=== PATIENT | male | born 1955 | race Caucasian/White ===

== ENCOUNTER → 2020-01-01 10:43 | Outpatient (BNVA) | payer MEDICARE, SELFPAY | PROVIDERS: Family Provider Nurse Practitioner; PCP Nurse Practitioner; Visit Provider Nurse Practitioner | DX: I10 Essential (primary) hypertension (principal); E78.2 Mixed hyperlipidemia; I73.9 Peripheral vascular disease, unspecified; F41.9 Anxiety disorder, unspecified; Z87.891 Personal history of nicotine dependence; Z79.899 Other long term (current) drug therapy | CPT/HCPCS: 80053; 80061 ==

== ENCOUNTER → 2020-01-05 11:58 | Outpatient (BNVA) | payer MEDICARE, SELFPAY | PROVIDERS: Family Provider Nurse Practitioner; PCP Nurse Practitioner; Visit Provider Nurse Practitioner | DX: R73.9 Hyperglycemia, unspecified (principal) | CPT/HCPCS: 83036 ==

== ENCOUNTER → 2020-01-06 11:30 | Outpatient (BNVA) | payer MEDICARE, SELFPAY | PROVIDERS: Family Provider Nurse Practitioner; PCP Nurse Practitioner; Visit Provider Nurse Practitioner | DX: I10 Essential (primary) hypertension (principal); E78.2 Mixed hyperlipidemia; Z79.899 Other long term (current) drug therapy | CPT/HCPCS: 81000 ==

== ENCOUNTER → 2020-07-26 13:55 | Outpatient (BNVA) | payer MEDICARE, SELFPAY | PROVIDERS: Family Provider Nurse Practitioner; PCP Nurse Practitioner; Visit Provider Nurse Practitioner | DX: I10 Essential (primary) hypertension (principal); F41.9 Anxiety disorder, unspecified; I73.9 Peripheral vascular disease, unspecified; E78.2 Mixed hyperlipidemia | CPT/HCPCS: 80053; 80061; 82607 ==

== ENCOUNTER → 2021-01-10 11:34 | Outpatient (BNVA) | payer MEDICARE, SELFPAY | PROVIDERS: Family Provider Nurse Practitioner; PCP Nurse Practitioner; Visit Provider Nurse Practitioner | DX: I10 Essential (primary) hypertension (principal); F41.9 Anxiety disorder, unspecified; I73.9 Peripheral vascular disease, unspecified; E78.2 Mixed hyperlipidemia | CPT/HCPCS: 80053; 80061; 84443; 85025 ==

== ENCOUNTER 2021-06-15 12:02 | Outpatient (CLI) | payer MEDICARE, SELFPAY ==
--- NOTE | 2021-06-15 13:30 | USCV_ITS ---
Samir Reid Age: 65 Gender: M : 1955 Exam Date: 06/15/2021 12:33 Ordering Phys: Jaclyn Aguillon Technologist: Exam Location: [facility] – [place] Indication: CCA DISEASE Risk Factors: Previous Vascular Surgery: Right Brachial BP: / Left Brachial BP: / Right Left Velocity (cm/s) Spectral Plaque Velocity (cm/s) Spectral Plaque Syst/Diast Broadening Syst/Diast Broadening 75.00/ 17.60 Prox CCA 67.80 / 8.60 72.80/ 16.50 Hetro Mid CCA 58.50 / 10.00 61.70/ 16.50 Hetro Distal CCA 37.90 / 11.30 204.25/68.15 Salvador Prox ICA / Hetro 368.25/106.30 Hetro Mid ICA / Hetro 340.15/111.00 Distal ICA / Hetro 81.60 ECA 63.50 4.89 ICA/CCA Antegrade Vertebral Antegrade 34.80/ 8.70 cm/s 54.90/ 16.30 cm/s Tri Subclavian Tri 55.70 81.50 FINDINGS Comparison: none available. Severe obstructive lesions noted in the left internal carotid artery estimated at 70-99% stenosis. Marked elevation of diastolic velocity also. Left ICA is completely occluded. Antegrade vertebral arteries. CONCLUSIONS Right ICA stenosis 70-99%. Complete occlusion left ICA. Dr. Ashley Parekh DO (Electronically Signed) Final Date: 15 June 2021 16:02 S
== END 2021-06-15 12:03 | disposition home or self-care (01) ==
LOC: RAD 12:07
PROVIDERS: PCP Nurse Practitioner; Visit Provider Nurse Practitioner
DX: H53.9 Unspecified visual disturbance (principal); I65.23 Occlusion and stenosis of bilateral carotid arteries
CPT/HCPCS: 93880

== ENCOUNTER 2021-06-20 13:22 | Outpatient (CLI) | payer MEDICARE, SELFPAY ==
[2021-06-20 14:23] LABS: Anion Gap 19.1 (5-19); Blood Urea Nitrogen 11 mg/dL (8-23); Calcium 8.9 mg/dL (8.5-10.5); Carbon Dioxide 23 mmol/L (22-29); Chloride 96 mmol/L (98-107); Glomerular Filtration Rate 74.5 mL/min (90-130); Glucose 161 mg/dL (65-115); Osmolality Calculated 279 mOsm/kg (285-295); Potassium 5.1 mmol/L (3.5-5.1); Sodium 133 mmol/L (136-145)
--- NOTE | 2021-06-20 14:30 | CT_ITS ---
WS: [id number] CTA NECK TECHNIQUE: Contrast enhanced CTA of the neck with coronal and sagittal reformatted images and maximum intensity projection (MIP) images. NASCET criteria utilized. CLINICAL INFORMATION: R94.39 - Abnormal result of other cardiovascular function... COMPARISON: Ultrasound June 15, 2021 DLP: [address] scans [address] [facility] use at least one of these dose optimization techniques: automated e xposure control; mA and/or kV adjustment per patient size (includes targeted exams where dose is matc hed to clinical indication); or iterative reconstruction. FINDINGS: RIGHT: RIGHT common carotid artery is patent. Mild circumferential narrowing in the proximal common c arotid artery. Moderate calcified atheromatous plaque RIGHT carotid bulb extending into the ICA. RIGH T ICA stenosis approximately 1 cm from the origin measures approximately 56%. RIGHT ICA is patent to the skull base. LEFT: LEFT common carotid artery is patent and arises from the innominate.. Mild stenosis LEFT mid co mmon carotid artery. Advanced atheromatous plaque LEFT carotid bulb extending into the ICA with compl ete occlusion. LEFT ICA remains occluded to the skull base. No flow in the intracranial LEFT ICA. LEFT dominant vertebral artery. Tiny hypoplastic RIGHT vertebral artery proximally with a more normal caliber distally. Severe calcified stenosis of the RIGHT vertebral artery origin. Both vertebral art eries are patent to the basilar junction. Basilar artery is patent. Normal vascularity to the HEAD WAITRESS territory bilaterally. RIGHT ICA is patent at the skull base with moderate calcified moderate spondylitic changes cervical spine. Atheromatous dis ease. Patent anterior communicating artery. Cross filling of the LEFT A1 segment. Normal vascularity to the RENUKA and MCA territories bilaterally. Normal posterior nasopharynx. Normal parapharyngeal fat. Parotid glands and submandibular glands appe ar normal. 8 mm partially calcified nodule RIGHT upper lobe anteriorly subpleural in location. CT/CT angio neck 47016 IMPRESSION: 1. Occlusion of the LEFT proximal ICA remains occluded to the skull base with dense calcified atheromatous disease. This is unchanged since the recent ultras ound. 2. Moderate calcified atheromatous plaque RIGHT carotid bulb extending into th e ICA. RIGHT ICA stenosis measures approximately 56% 3. LEFT dominant vertebral artery. Severe calcified stenosis of the RIGHT vert ebral artery origin. Both vertebral arteries are patent to the basilar junction . 4. No high-grade intracranial flow limiting stenosis. 5. Cross-filling of the LEFT MCA territory with patent anterior communicating artery.
[2021-06-20] MEDS: iohexol 350 mg/mL 100 mL Btl IV (14:37)
== END 2021-06-20 13:23 | disposition home or self-care (01) ==
PROVIDERS: PCP Nurse Practitioner; Visit Provider Nurse Practitioner
DX: I65.21 Occlusion and stenosis of right carotid artery (principal); I65.01 Occlusion and stenosis of right vertebral artery; R94.39 Abnormal result of other cardiovascular function study
CPT/HCPCS: 70498; 80048

== ENCOUNTER → 2021-06-23 13:52 | Outpatient (BNVA) | payer MEDICARE, SELFPAY | PROVIDERS: PCP Nurse Practitioner; Visit Provider Thoracic Surgery (Cardiothoracic Vascular Surgery) | DX: I65.23 Occlusion and stenosis of bilateral carotid arteries (principal); F17.200 Nicotine dependence, unspecified, uncomplicated ==

== ENCOUNTER 2021-12-20 11:59 | Outpatient (CLI) | payer MEDICARE, SELFPAY ==
--- NOTE | 2021-12-20 12:15 | USCV_ITS ---
Reid Dawson Age: 66 Gender: M : 1955 Exam Date: 12/20/2021 12:37 Ordering Phys: Rex Baldwin MD (Andy) ([email or web address]/[facility] [place]) Technologist: GWEN [place] [facility] [place]: cca stenosis Risk Factors: Previous Vascular Surgery: Right Brachial BP: / Left Brachial BP: / Right Left Velocity (cm/s) Spectral Plaque Velocity (cm/s) Spectral Plaque Syst/Diast Broadening Syst/Diast Broadening 72.80/ 19.80 Prox CCA 47.00 / 9.40 15.40/ 68.40 Mid CCA 50.40 / 7.70 72.20/ 15.50 PST Hetro Distal CCA 36.70 / 7.70 485.40/164.10 PST Hetro Prox ICA / Hetro 501.20/162.00 PST Homo Mid ICA / Hetro 509.60/183.30 Homo Distal ICA / Hetro 88.60 ECA 82.90 7.00 ICA/CCA Antegrade Vertebral Antegrade 70.10/ 20.50 cm/s 100.7/ 23.40 cm/s 0 Tri Subclavian Tri 79.50 178.1 0 FINDINGS appears worse than exam 6 months ago no flow lt ica CONCLUSIONS Occluded left ICA. Left CCA is patent Right ICA stenosis 70-99%. Severe atheromatous plaque right carotid bulb/ICA. Velocities progressed since 06/15/21. This could be further evaluated with CTA Normal antegrade Doppler flow noted in the right vertebral artery. Normal antegrade Doppler flow noted in the left vertebral artery. Eddie Ribeiro MD (Electronically Signed) Final Date: 20 December 2021 16:58 S
== END 2021-12-20 12:00 | disposition home or self-care (01) ==
LOC: RAD 11:59
PROVIDERS: PCP Nurse Practitioner; Visit Provider Thoracic Surgery (Cardiothoracic Vascular Surgery)
DX: I65.23 Occlusion and stenosis of bilateral carotid arteries (principal)
CPT/HCPCS: 93880

== ENCOUNTER → 2021-12-22 13:36 | Outpatient (BNVA) | payer MEDICARE, SELFPAY | PROVIDERS: PCP Nurse Practitioner; Visit Provider Thoracic Surgery (Cardiothoracic Vascular Surgery) | DX: I65.21 Occlusion and stenosis of right carotid artery (principal); F17.200 Nicotine dependence, unspecified, uncomplicated | CPT/HCPCS: 99213 ==

== ENCOUNTER 2022-01-31 07:46 | Outpatient (CLI) | payer MEDICARE, SELFPAY ==
--- NOTE | 2022-01-31 08:00 | CT_ITS ---
WS: [id number] CTA NECK TECHNIQUE: Contrast enhanced CTA of the neck with coronal and sagittal reformatted images and maximum intensity projection (MIP) images. NASCET criteria utilized. CLINICAL INFORMATION: carotid stenosis COMPARISON: CTA June 20, 2021 DLP: 304.[address] scans at [facility] use at least one of these dose optimization techniques: automated e xposure control; mA and/or kV adjustment per patient size (includes targeted exams where dose is matc hed to clinical indication); or iterative reconstruction. FINDINGS: RIGHT: RIGHT common carotid artery is patent. Moderate atheromatous plaque RIGHT carotid bulb extendi ng into the ICA. RIGHT ICA stenosis measures 55% unchanged from previous. ICA is patent to the skull base. Tortuous RIGHT cervical ICA. LEFT: LEFT common carotid artery is patent. Occluded LEFT proximal ICA unchanged. LEFT ICA remains oc cluded to the skull base. LEFT ECA is patent. LEFT dominant vertebral artery. Severe stenosis RIGHT vertebral artery origin with dense calcified st enosis appears unchanged. Proximal basilar artery is normal. Normal vascularity to the CARBON ACCOUNTANT territory bilaterally. Mastoid air cells are well aerated. Fluid maxillary sinuses consistent with sinusitis. Small amount o f fluid in the sphenoid sinuses. CT/CT angio neck [id number] IMPRESSION: 1. RIGHT ICA stenosis measuring 55% not significantly changed since June 20, 2021 where it measured 56%. Moderate atheromatous plaque RIGHT carotid bulb ext ending into the ICA. 2. Chronic occlusion LEFT ICA is unchanged. ICA remains occluded to the skull base. 3. LEFT dominant vertebral artery. Dense calcified stenosis of the RIGHT verte bral artery origin with severe stenosis unchanged.
[2022-01-31 08:26] LABS: Blood Urea Nitrogen 9 mg/dL (8-23); Glomerular Filtration Rate 83.9 mL/min (90-130)
[2022-01-31] MEDS: iohexol 350 mg/mL 100 mL Btl IV (08:37)
== END 2022-01-31 07:47 | disposition home or self-care (01) ==
PROVIDERS: PCP Nurse Practitioner; Visit Provider Thoracic Surgery (Cardiothoracic Vascular Surgery)
DX: I65.23 Occlusion and stenosis of bilateral carotid arteries (principal); Z01.89 Encounter for other specified special examinations
CPT/HCPCS: 70498; 82565; 84520

== ENCOUNTER 2022-06-09 09:45 | Outpatient (CLI) | payer MEDICARE, SELFPAY ==
--- NOTE | 2022-06-09 10:00 | USCV_ITS ---
Reid Dawson Age: 66 Gender: M : 1955 Exam Date: 06/09/2022 10:19 Ordering Phys: Rex Baldwin MD (Andy) [email or web address] [place] Technologist: UCHE [place] Location[place] [facility] [place]ication: Carotid Stenosis Risk Factors: Previous Vascular Surgery: Right Brachial BP: / Left Brachial BP: / Right Left Velocity (cm/s) Spectral Plaque Velocity (cm/s) Spectral Plaque Syst/Diast Broadening Syst/Diast Broadening 79.40/ 19.80 Prox CCA 76.20 / 7.90 54.00/ 15.40 Mid CCA 59.50 / 9.90 52.80/ 12.40 Distal CCA 47.40 / 8.50 118.70/45.00 Prox ICA / 423.80/167.50 Mid ICA / 347.50/145.30 Distal ICA / 45.10 ECA 62.10 5.34 ICA/CCA Antegrade Vertebral Antegrade 88.90/ 22.80 cm/s 77.50/ 18.20 cm/s Tri Subclavian Tri 241.5 221.0 0 0 FINDINGS LT ICA appears completely occluded, no flow detected. Comp 07/06/21 CONCLUSIONS Left ICA occlusion unchanged Markedly elevated velocites mid RIGHT ICA suggesting >70% stenosis. Recommend CTA in further evaluation. Velocity mid ICA progressed compared to 07/05 Right ICA stenosis <50% proximally. Moderate atheromatous plaque right carotid bulb/ICA. Normal antegrade Doppler flow noted in the left vertebral artery. Normal antegrade Doppler flow noted in the right vertebral artery. . Eddie Ribeiro MD (Electronically Signed) Final Date: 09 June 2022 12:26 S
== END 2022-06-09 09:46 | disposition home or self-care (01) ==
LOC: RAD 09:48
PROVIDERS: PCP Nurse Practitioner; Visit Provider Thoracic Surgery (Cardiothoracic Vascular Surgery)
DX: I65.23 Occlusion and stenosis of bilateral carotid arteries (principal)
CPT/HCPCS: 93880

== ENCOUNTER → 2022-06-28 12:04 | Outpatient (BNVA) | payer MEDICARE, SELFPAY | PROVIDERS: PCP Nurse Practitioner; Visit Provider Nurse Practitioner | DX: R73.9 Hyperglycemia, unspecified (principal); I10 Essential (primary) hypertension | CPT/HCPCS: 80053; 80061; 83036 ==

== ENCOUNTER → 2022-08-31 10:54 | Outpatient (BNVA) | payer MEDICARE, SELFPAY | PROVIDERS: PCP Nurse Practitioner; Visit Provider Thoracic Surgery (Cardiothoracic Vascular Surgery) | DX: I65.21 Occlusion and stenosis of right carotid artery (principal); Z87.891 Personal history of nicotine dependence | CPT/HCPCS: 99213 ==

== ENCOUNTER 2022-12-01 11:34 | Outpatient (CLI) | payer MEDICARE, SELFPAY ==
--- NOTE | 2022-12-01 12:15 | USCV_ITS ---
Samir Reid Age: 67 Gender: M : 1955 Exam Date: 12/01/2022 12:31 Ordering Phys: Rex Baldwin MD (Andy) [email or web address] [place] Technologist: Marylin Diaz [place]am Location[place] [facility] [place] Indication: KNOWN LT ICA OCCLUSION Risk Factors: Unknown Previous Vascular Surgery: Unknown Right Brachial BP: / Left Brachial BP: / Right Left Velocity (cm/s) Spectral Plaque Velocity (cm/s) Spectral Plaque Syst/Diast Broadening Syst/Diast Broadening 104.80/22.10 Prox CCA 86.80 / 18.40 76.90/ 20.20 Mid CCA 49.60 / 17.10 57.70/ 13.50 Distal CCA 43.60 / 23.10 40.70/ 9.20 Prox ICA / 95.20/ 30.80 Mid ICA / 76.80/ 33.10 Distal ICA / 103.80 ECA 102.50 1.24 ICA/CCA Antegrade Vertebral Antegrade 122.3/ 36.80 cm/s 110.3/ 31.10 cm/s 0 0 Tri Subclavian Bi 124.9 312.9 0 0 CONCLUSIONS Chronic Left ICA occlusion Right ICA stenosis <50%. Mild atheromatous plaque right carotid bulb/ICA. Intimal thickening in the common carotid arteries and internal carotid arteries bilaterally. Normal antegrade Doppler flow noted in the right vertebral artery. Normal antegrade Doppler flow noted in the left vertebral artery. Eddie Ribeiro MD (Electronically Signed) Final Date: 01 December 2022 14:08 S
== END 2022-12-01 11:35 | disposition home or self-care (01) ==
PROVIDERS: PCP Nurse Practitioner; Visit Provider Thoracic Surgery (Cardiothoracic Vascular Surgery)
DX: I65.23 Occlusion and stenosis of bilateral carotid arteries (principal)
CPT/HCPCS: 93880

== ENCOUNTER → 2022-12-28 09:18 | Outpatient (BNVA) | payer MEDICARE, SELFPAY | PROVIDERS: PCP Nurse Practitioner; Visit Provider Thoracic Surgery (Cardiothoracic Vascular Surgery) | DX: I65.22 Occlusion and stenosis of left carotid artery (principal); I73.9 Peripheral vascular disease, unspecified; F17.200 Nicotine dependence, unspecified, uncomplicated | CPT/HCPCS: 99213 ==

== ENCOUNTER 2023-01-10 11:45 | Outpatient (CLI) | payer MEDICARE, SELFPAY ==
--- NOTE | 2023-01-10 14:30 | USCV_ITS ---
Reid Dawson Age: 67 Gender: M : 1955 Exam Date: 01/10/2023 12:56 Ordering Phys: Rex Baldwin MD (Andy) ([email or web address]/[facility] [place]) Technologist: WANDA [place] [facility] [place]: EVAL FOR STENOSIS. KNOWN LEFT ICA OCCLUSION Risk Factors: Previous Vascular Surgery: Right Brachial BP: / Left Brachial BP: / Right Left Velocity (cm/s) Spectral Plaque Velocity (cm/s) Spectral Plaque Syst/Diast Broadening Syst/Diast Broadening 94.80/ 16.50 Prox CCA 76.10 / 12.10 118.00/24.30 Mid CCA 88.20 / 19.80 94.80/ 18.70 Distal CCA 77.20 / 12.10 75.80/ 10.50 Prox ICA / 328.10/122.30 Mid ICA / 160.00/69.70 Distal ICA / 79.80 ECA 99.20 2.78 ICA/CCA Antegrade Vertebral Antegrade 28.00/ 15.50 cm/s 89.30/ 33.10 cm/s Tri Subclavian Tri 129.2 197.9 0 0 FINDINGS Comparison:. 8/ Severe obstructive lesions noted in the right internal carotid artery , elevated systolic and diastolic velocities. Diffuse moderate plaque in the carotid arteries. Known occluded left ICA. Antegrade vertebral arteries. CONCLUSIONS Right ICA stenosis 70-99%. Significant change in velocity since the prior exam. Recommend follow up CTA neck. Known occluded left ICA. Dr. Ashley Parekh DO (Electronically Signed) Final Date: 10 January 2023 15:30 S
--- NOTE | 2023-01-10 15:00 | USCV_ITS ---
Reid Dawson Age: 67 Gender: M : 1955 Exam Date: 01/10/2023 13:19 Ordering Phys: Rex Baldwin MD (Andy) ([email or web address] [place] Technologist: WANDA Exam Location: [facility] [place] Indication: LEG PAIN Risk Factors: Previous Vascular Surgery: RIGHT LEFT Waveform Velocity (cm/s) Velocity (cm/s) Waveform Biphasic Iliac Prox Triphasic 77.4 106.9 Biphasic 73.1 Iliac Mid 111.8 Triphasic Biphasic 92.7 Iliac Distal 165.6 Triphasic Biphasic 179.6 RENT COLLECTOR 188.0 Triphasic Biphasic 66.2 SFA Prox 124.6 Triphasic Biphasic 109.2 SFA Mid 61.4 Triphasic Biphasic 242.3 SFA Dist 369.8 Biphasic Biphasic 50.0 POP 87.5 Monophasic Biphasic 45.0 GOLF CART MECHANIC 38.0 Monophasic Biphasic 107.0 DPA 0.0 N/A FINDINGS Moderate to heavy dense irregular plaque in the right common femoral artery. Moderate diffuse plaques in the other vessels. Elevated velocity at the distal SFA on the right side. Heavy dense irregular plaques in the left common iliac and femoral arteries. Moderate diffuse plaque in the follow-up popliteal artery. High Doppler velocities with color flow turbulence at the distal SFA CONCLUSIONS 1. Moderate to heavy dense irregular plaque at the right common femoral artery. Elevated velocities at the common femoral and distal superficial femoral arteries, suggesting of greater than 50% stenosis. 2. Moderate to heavy dense irregular plaques in the iliac and femoral, femoral artery on the left side .Elevated velocity at the distal superficial femoral artery suggestive of greater than 70% stenosis. 3. Possibly occluded dorsalis pedis artery on the left side 4. Noncompressible ankle vessels bilaterally suggesting extensive arterial sclerosis No similar previous studies are available for comparison Dr Arabella Cueto MD [facility] (Electronically Signed) Final Date: 11 January 2023 09:29 S
== END 2023-01-10 11:46 | disposition home or self-care (01) ==
PROVIDERS: PCP Nurse Practitioner; Visit Provider Thoracic Surgery (Cardiothoracic Vascular Surgery)
DX: I70.203 Unspecified atherosclerosis of native arteries of extremities, bilateral legs (principal); I65.23 Occlusion and stenosis of bilateral carotid arteries; M79.604 Pain in right leg; M79.605 Pain in left leg
CPT/HCPCS: 93880; 93925

== ENCOUNTER → 2023-07-03 11:18 | Outpatient (BNVA) | payer MEDICARE, SELFPAY | PROVIDERS: PCP Nurse Practitioner; Visit Provider Nurse Practitioner | DX: I10 Essential (primary) hypertension (principal); E78.2 Mixed hyperlipidemia; J44.9 Chronic obstructive pulmonary disease, unspecified; F41.9 Anxiety disorder, unspecified; G47.00 Insomnia, unspecified; M79.2 Neuralgia and neuritis, unspecified; I73.9 Peripheral vascular disease, unspecified; Z87.891 Personal history of nicotine dependence | CPT/HCPCS: 80053; 80061; 83036; 84443; 85025 ==

== ENCOUNTER → 2023-07-09 12:32 | Outpatient (BNVA) | payer MEDICARE, SELFPAY | PROVIDERS: PCP Nurse Practitioner; Visit Provider Nurse Practitioner | DX: I10 Essential (primary) hypertension (principal); E78.2 Mixed hyperlipidemia; Z79.899 Other long term (current) drug therapy | CPT/HCPCS: 81000 ==